=== PATIENT | female | born 1970 | race Caucasian/White ===

== ENCOUNTER 2016-10-28 07:17 | Emergency (ER) | payer BC ==
[2016-10-28] MEDS ORDERED: Ketorolac INJ* 60 MG/2 ML VIAL IM ONE (07:35)
--- NOTE | 2016-10-28 08:31 | RAD ---
HISTORY: Rib pain status post fall COMPARISONS: None relevant VIEWS: 4, Frontal view of the chest with frontal and oblique views of the left hemithorax FINDINGS: There is no displaced rib fracture or pneumothorax. The visualized lungs are clear. IMPRESSION: NO DISPLACED RIB FRACTURE OR PNEUMOTHORAX
[2016-10-28 09:19] VITALS: BP 118/75
--- NOTE | 2016-10-28 09:25 | RAD ---
HISTORY: Left flank pain, fall COMPARISONS: CT dated December 17, 2012 TECHNIQUE: Multiple transverse and longitudinal ultrasound images were obtained of the left hemiabdomen using grayscale and color Doppler imaging. FINDINGS: LEFT KIDNEY: The left kidney is normal in shape, size, contour, and echogenicity. There is no hydronephrosis or nephrolithiasis. The left kidney measures 10.5 x 4.7 x 5.2 cm. SPLEEN: The spleen is normal in shape, size, contour, and echotexture, without perisplenic fluid collection. The spleen measures 8.6 x 2.9 x 2.5 cm FLUID: There is no appreciable free fluid within the visualized portion of the abdomen OTHER FINDINGS: None. IMPRESSION: UNREMARKABLE LEFT KIDNEY AND SPLEEN, WITHOUT PERINEPHRIC OR PERISPLENIC FLUID COLLECTION.
--- NOTE | 2016-10-28 12:58 | UC ---
Freddie Otero Alok, scribed for Jessy Santizo DO on 10/28/16 at 0747 . Minor Trauma HPI - HPI Summary HPI Summary: 46 y/o female presents to the following a slip and fall in the bathtub last night at approximately 2100. Pt states that she fell on her left side and reports left-sided rib pain that registers at a 9 out of 10 in severity. Pt last took Ibuprofen ONCOLOGY COORDINATOR at 0645 this morning with no relief and states her pain is worsened by movement. Alleviated by stillness. Pt is taking shallow breathes d/t pain since the injury. She has had a minor cough for the past few days which is now excrutiating. Pt denies impact to the head during fall or loss of consciousness. Pt additionally denies sore throat, ear ache, MEAD, rash, nasal congestion, N/V, abd pain, urinary symptoms, SOB, lightheadedness, or dizziness. Pt smokes tobacco. - History of Current Complaint Chief Complaint: UCTrauma Stated Complaint: FELL-RIB INJURY Time Seen by Provider: 10/28/16 07:34 Hx Obtained From: Patient Hx Last Menstrual Period: unknown - menapausal ?: No Onset/Duration: Gradual Onset, Lasting Hours, Still Present Onset Of Pain: Post Accident Severity Initially: Moderate Severity Currently: Moderate Pain Intensity: 9 Pain Scale Used: 0-10 Numeric Mechanism Of Injury: Fall From A Standing Position Aggravating Factor(s): Movement Alleviating Factor(s): Nothing Associated Signs And Symptoms: Positive: Ecchymosis. Negative: Loss Of Consciousness - Allergies/Home Medications Allergies/Adverse Reactions: Allergies Allergy/AdvReac Type Severity Reaction Status Date / Time Codeine Allergy Severe Nausea And Verified 10/28/16 07:33 Vomiting PMH/Surg Hx/FS Hx/Imm Hx Previously Healthy: Yes Endocrine History Of: Denies: Diabetes, Thyroid Disease Cardiovascular History Of: Denies: Cardiac Disorders, Hypertension, Pacemaker/ICD Respiratory History Of: Denies: COPD, Asthma GI/ History Of: Denies: Ulcer - Surgical History Surgical History: Yes Surgery Procedure, Year, and Place: ; L heel bone removed; vaginal infection surgery. [facility] [place] - Family History Known Family History: Positive: Cardiac Disease, Hypertension - Social History Occupation: Employed Full-time Lives: With Family Alcohol Use: Daily Alcohol Amount: couple drinks a day Substance Use Type: None, Prescribed Smoking Status (MU): Heavy Every Day Tobacco Smoker Type: Cigarettes Amount Used/How Often: 1/2 ppd Have You Smoked in the Last Year: Yes Cessation Counseling: Patient Advised to Stop Review of Systems Constitutional: Negative Skin: Negative Eyes: Negative ENT: Negative Respiratory: Cough, Other - dypnea d/t pain Cardiovascular: Chest Pain - pleuritic Gastrointestinal: Negative Genitourinary: Negative Motor: Negative Neurovascular: Negative Musculoskeletal: Other: - Left-sided rib pain Neurological: Negative Psychological: Negative All Other Systems Reviewed And Are Negative: Yes Physical Exam Triage Information Reviewed: Yes Appearance: Well-Appearing, Well-Nourished, Pain Distress Vital Signs: Initial Vital Signs Temp 98.6 F 10/28/16 07:27 Pulse 108 10/28/16 07:27 Resp 20 10/28/16 07:27 BP 113/71 10/28/16 07:27 Pulse Ox 97 10/28/16 07:27 Vital Signs Reviewed: Yes Eyes: Positive: Conjunctiva Clear. Negative: Discharge ENT: Positive: Hearing grossly normal. Negative: Muffled/hoarse voice Neck exam: Normal Neck: Positive: Supple Respiratory: Positive: Lungs clear, Normal breath sounds, No respiratory distress, No accessory muscle use Cardiovascular: Positive: RRR, No Murmur Musculoskeletal: Positive: Other: - bruising over the lower cage on the axiallry line. tender ribs 9-12 on left Neurological: Positive: Alert, Muscle Tone Normal Psychological Exam: Normal Psychological: Positive: Age Appropriate Behavior Skin Exam: Normal, Other - Warm, Dry, Normal color Diagnostics - Laboratory Diagnostic Studies Completed/Ordered: Abd US - IMPRESSION: UNREMARKABLE LEFT KIDNEY AND SPLEEN, WITHOUT PERINEPHRIC OR PERISPLENIC FLUID COLLECTION. - Radiology Rib XRAY Xray Interpretation: Positive (See Comments) - IMPRESSION: NO DISPLACED RIB FRACTURE OR PNEUMOTHORAX Radiology Interpretation Completed By: Radiologist Re-Evaluation - Re-Evaluation First Eval Re-Evaluation Time: 08:43 Comment: No lightheadedness, dizziness, or SOB Minor Trauma Course/Dx - Course Course Of Treatment: Advised Against Smoking - Differential Dx/Diagnosis Differential Diagnosis/HQI/PQRI: Contusion(s), Fracture Provider Diagnoses: rib injury Discharge - Discharge Plan Condition: Stable Disposition: HOME Prescriptions: Ondansetron TAB* [Zofran Tab*] 4 mg PO Q6H PRN #10 tab PRN Reason: Nausea/Vomiting traMADol TAB* [Ultram*] 50 mg PO Q8H PRN #14 tab MDD 3 TABS PRN Reason: Pain Patient Education Materials: Rib Contusion (ED) Referrals: Warner Ulloa MD [Primary Care Provider] - 1 Week (FOLLOW UP IN 1 WEEK. FOLLOW UP SOONER IF SYMPTOMS WORSEN OR NEW SYMPTOMS DEVELOP.) Additional Instructions: ULTRAM (tramadol hydrochloride): Ultram is an excellent drug for pain relief. It is not a narcotic, but it works in a similar way. Ultram can take up to two hours for full effect. Although not addicting, Ultram is best avoided in patients with a history of drug abuse. Ultram should not be used with alcohol, sleeping pills, or narcotics. If you're prone to seizures, Ultram can make you more likely to have a seizure. Ultram can be hazardous when combined with MAO-inhibitor antidepressants (such as Nardil or Parnate). Be sure your doctor is aware of all medicines you are taking. Persons with severe liver or kidney disease should increase the time between doses of Ultram. Discuss this with your doctor if you're uncertain. Side effects of Ultram can include dizziness, nausea, constipation, sleepiness, and itching. (These side effects are also seen with narcotic pain medicines.) Please call your doctor if you have other disturbing effects. YOU WOULD LIKELY BENEFIT FROM BODY WORK SUCH A CHIROPRACTIC, ACCUPUNCTURE OR OSTEOPATHY. The documentation as recorded by the Freddie shin Alok accurately reflects the service I personally performed and the decisions made by , Jessy Santizo DO.
== END 2016-10-28 10:00 | disposition home or self-care (01) ==
LOC: UCEAST 07:17
DX: S09.8XXA Other specified injuries of head, initial encounter (principal); W18.2XXA Fall in (into) shower or empty bathtub, initial encounter; Y93.9 Activity, unspecified; Y99.9 Unspecified external cause status; F17.210 Nicotine dependence, cigarettes, uncomplicated; Z88.5 Allergy status to narcotic agent
CPT/HCPCS: 76705; 81003; 84702; 96372; 99212; G0463; J1885

== ENCOUNTER 2017-02-06 21:31 | Emergency (ER) | payer BC ==
[2017-02-06 21:47] VITALS: BP 129/82
[2017-02-06] MEDS ORDERED: Amoxicillin/Clavulanate TAB* 875 MG PO ONE (21:50)
[2017-02-06] MEDS ORDERED: Diphth/Teta/Acell Pertusis* 0.5 ML VIAL ** FOR 6 WKS TO 7 YRS OLD IM ONE (21:50)
[2017-02-06] MEDS ORDERED: Tetan/Diph/Pertus SYR(Tdap)* 0.5 ML SYR(BOOSTRIX) use SYR IM ONE (22:08)
--- NOTE | 2017-02-06 22:14 | ED ---
mabel Otero Timothy, scribed for ClairCooper on 02/06/17 at 2152 . Bite Injury/Animal - HPI Summary HPI Summary: Yoli Hansen is a 47 yo female presenting to [facility] with a cat bite to her right index finger at 2030 today. Per Pt,the cat is her own and is not UTD on rabies vaccine. She is not in any current pain. Her Mx includes , cholecystectomy. - History of Current Complaint Chief Complaint: EDAnimalBite Stated Complaint: CAT BITE ON FINGER Time Seen by Provider: 02/06/17 21:44 Hx Obtained From: Patient Hx Last Menstrual Period: unknown - menapausal Onset of Injury: Happened hours ago Type of Bite: Animal Has Animal Been Immunized?: No Severity Initially: Moderate Severity Currently: Moderate Pain Intensity: 0 Pain Scale Used: 0-10 Numeric Character: Puncture - Allergies/Home Medications Allergies/Adverse Reactions: Allergies Allergy/AdvReac Type Severity Reaction Status Date / Time Codeine Allergy Severe Nausea And Verified 10/28/16 07:33 Vomiting PMH/Surg Hx/FS Hx/Imm Hx Endocrine/Hematology History: Denies: Hx Diabetes, Hx Thyroid Disease Cardiovascular History: Denies: Hx Hypertension, Hx Pacemaker/ICD Respiratory History: Denies: Hx Asthma, Hx Chronic Obstructive Pulmonary Disease (COPD) GI History: Denies: Hx Ulcer Sensory History: Denies: Hx Hearing Aid Psychiatric History: Denies: Hx Panic Disorder - Surgical History Surgery Procedure, Year, and Place: ; L heel bone removed; vaginal infection surgery. [facility] [place] Infectious Disease History: No Infectious Disease History: Denies: Hx Clostridium Difficile, Hx Hepatitis, Hx Human Immunodeficiency Virus (HIV), Hx of Known/Suspected MRSA, Hx Shingles, Hx Tuberculosis, Traveled Outside the [place] in Last 30 Days - Family History Known Family History: Positive: Cardiac Disease, Hypertension - Social History Alcohol Use: Daily Alcohol Amount: couple drinks a day Substance Use Type: Reports: None, Prescribed Smoking Status (MU): Heavy Every Day Tobacco Smoker Type: Cigarettes Amount Used/How Often: 1/2 ppd Have You Smoked in the Last Year: Yes Review of Systems Constitutional: Negative Eyes: Negative ENT: Negative Cardiovascular: Negative Respiratory: Negative Gastrointestinal: Negative Genitourinary: Negative Musculoskeletal: Negative Positive: Other - cat bite right hand index finger Neurological: Negative Psychological: Normal All Other Systems Reviewed And Are Negative: Yes Physical Exam Triage Information Reviewed: Yes Vital Signs On Initial Exam: Initial Vitals Temp Pulse Resp BP Pulse Ox 97.8 F 92 16 135/76 99 02/06/17 21:33 02/06/17 21:33 02/06/17 21:33 02/06/17 21:33 02/06/17 21:33 Vital Signs Reviewed: Yes Appearance: Positive: Well-Appearing, No Pain Distress, Well-Nourished Skin: Positive: Warm, Skin Color Reflects Adequate Perfusion, Dry, Other - 2 puncture wounds on lateral aspect of right index finger, no bleeding, mild swelling. No ROM restriction. Head/Face: Positive: Normal Head/Face Inspection Eyes: Positive: EOMI, PRADIP ENT: Positive: Normal ENT inspection, Hearing grossly normal. Negative: Muffled /hoarse voice Neck: Positive: Supple, Nontender Respiratory/Lung Sounds: Positive: Clear to Auscultation, Breath Sounds Present Cardiovascular: Positive: RRR, Pulses are Symmetrical in both Upper and Lower Extremities Abdomen Description: Positive: Nontender, Soft Bowel Sounds: Positive: Present Musculoskeletal: Positive: Normal, Strength/ROM Intact Neurological: Positive: Normal, Sensory/Motor Intact, Alert, Oriented to Person Place, Time Psychiatric: Positive: Normal, Affect/Mood Appropriate Diagnostics - Vital Signs Vital Signs Temp Pulse Resp BP Pulse Ox 02/06/17 21:46 97.4 F 80 16 129/82 98 02/06/17 21:33 97.8 F 92 16 135/76 99 - Laboratory Lab Statement: Any lab studies that have been ordered have been reviewed, and results considered in the medical decision making process. Bite Injury Course/Dx - Course Assessment/Plan: Yoli Hansen is a 47 yo female presenting to [facility] with a cat bite to her right index finger at 2030 today. Pt medication list reviewed this visit. No x-rays indicated. In the ED course she received Ifanrix and augmentin. Pt counseled to observe her cat over the next 10 days and return to the ED immediately if she notices any change in behavior. After clinical examination and review of her imaging studies, she will be discharged home with cat bite right index finger with appropriate instructions and follow up. - Diagnoses Differential Diagnosis/HQI/PQRI: Positive: Other - cat bite Provider Diagnosis: Cat bite of index finger Discharge - Discharge Plan Condition: Stable Disposition: HOME Patient Education Materials: Animal Bite (ED) Referrals: Warner Ulloa MD [Primary Care Provider] - If Needed Additional Instructions: Please follow up with your primary care physician regarding your visit to the emergency department tonight. Return to the emergency department with any new or recurring symptoms, or if you notice any change in your cat's behavior in the next 10 days as we discussed. The documentation as recorded by the mabel shin Timothy accurately reflects the service I personally performed and the decisions made by , Cooper Self.
== END 2017-02-06 22:34 | disposition home or self-care (01) ==
LOC: ED 21:31
DX: S61.250A Open bite of right index finger without damage to nail, initial encounter (principal); W55.01XA Bitten by cat, initial encounter; Y93.89 Activity, other specified; Y92.89 Other specified places as the place of occurrence of the external cause; F17.210 Nicotine dependence, cigarettes, uncomplicated
CPT/HCPCS: 90471; 90715; 99282; A9270-GY

== ENCOUNTER 2018-05-28 07:57 | Emergency (ER) | payer BC ==
[2018-05-28 08:08] VITALS: BP 134/78
--- NOTE | 2018-05-28 08:33 | UC ---
Abdominal Pain Female HPI - HPI Summary HPI Summary: 48-year-old woman comes in today with a chief complaint of abdominal pain. Pain started yesterday primarily around the umbilicus. Overall she feels her abdomen is distended. Since the pain started she has not been hungry at all and has not eaten. She's also not had any bowel movements or passed any flatus since the pain started. The worst pain is right around the bellybutton and that 's tender when she touches it. He states it feels like it's on fire. She tries to find a position of comfort but she cannot. Pain is moderate to severe. She's had her gallbladder out and has had a . No fevers no dysuria. - History of Current Complaint Chief Complaint: UCAbdominalPain Stated Complaint: ABDOMINAL PAIN Time Seen by Provider: 05/28/18 08:20 Hx Last Menstrual Period: unknown - menapausal Pain Intensity: 4 Allergies/Adverse Reactions: Allergies Allergy/AdvReac Type Severity Reaction Status Date / Time codeine Allergy Nausea And Verified 05/28/18 08:08 Vomiting Home Medications: Home Medications ALPRAZolam [Xanax] 0.25 mg PO DAILY PRN 05/28/18 [History Confirmed 05/28/18] PMH/Surg Hx/FS Hx/Imm Hx Psychological History: Anxiety, Depression - Surgical History Surgical History: Yes Surgery Procedure, Year, and Place: ; L heel bone removed; vaginal infection surgery. [facility] [place] - Family History Known Family History: Positive: Cardiac Disease, Hypertension Negative: Diabetes - Social History Alcohol Use: Daily Alcohol Amount: couple drinks a day Substance Use Type: None Smoking Status (MU): Heavy Every Day Tobacco Smoker Type: Cigarettes Amount Used/How Often: 10-15cig/day Have You Smoked in the Last Year: Yes Household Exposure Type: Cigarettes Review of Systems Constitutional: Negative Skin: Negative Eyes: Negative ENT: Negative Respiratory: Negative Cardiovascular: Negative Gastrointestinal: Abdominal Pain Genitourinary: Negative Motor: Negative Neurovascular: Negative Musculoskeletal: Negative Neurological: Negative Psychological: Negative Is Patient Immunocompromised?: No All Other Systems Reviewed And Are Negative: Yes Physical Exam Triage Information Reviewed: Yes Appearance: Well-Nourished, Ill-Appearing - MILD, Pain Distress - MODERATE Vital Signs: Initial Vital Signs Temp 98.7 F 05/28/18 08:02 Pulse 112 11/08/18 08:02 Resp 18 05/28/18 08:02 BP 134/78 05/28/18 08:02 Pulse Ox 97 05/28/18 08:02 Vital Signs Reviewed: Yes Eye Exam: Normal Eyes: Positive: Conjunctiva Clear Neck exam: Normal Neck: Positive: Supple Respiratory: Positive: Lungs clear, Normal breath sounds, No respiratory distress Cardiovascular: Positive: Tachycardia Abdomen Description: Positive: Distended, Other: - Diffuse abdominal tenderness to palpation. Tenderness is worst at the umbilicus. I do not feel a mass at the umbilicus. Bowel sounds are minimal. Bowel Sounds: Positive: Hypoactive Musculoskeletal Exam: Normal Musculoskeletal: Positive: Strength Intact, ROM Intact Neurological Exam: Normal Neurological: Positive: Alert, Muscle Tone Normal Psychological Exam: Normal Psychological: Positive: Age Appropriate Behavior Skin: Positive: Other - There is some erythema around the umbilicus. Abd Pain Female Course/Dx - Course Course Of Treatment: The patient's symptoms and exam are concerning for partial bowel obstruction, complete bowel obstruction, and are hernia. I discussed the need for lab work that we can get him right back quickly and the potential for a CT with IV contrast which we cannot do here in clinic and I recommended the patient go to the emergency department. Patient declined ambulance transport will be going by POV. - Differential Dx/Diagnosis Provider Diagnoses: ABDOMINAL PAIN Discharge - Sign-Out/Discharge Documenting (check all that apply): Patient Departure All imaging exams completed and their final reports reviewed: No Studies - Discharge Plan Condition: Stable Disposition: HOME-RECOMMEND TO ED Patient Education Materials: Acute Abdominal Pain (ED) Referrals: Warner Ulloa MD [Primary Care Provider] - Additional Instructions: GO DIRECTLY TO THE EMERGENCY DEPARTMENT FOR FURTHER EVALUATION. - Billing Disposition and Condition Condition: STABLE Disposition: Home-Recommend to ED
== END 2018-05-28 08:35 | disposition home health service (06) ==
LOC: UCEAST 07:57
DX: R10.33 Periumbilical pain (principal); F17.210 Nicotine dependence, cigarettes, uncomplicated; F41.9 Anxiety disorder, unspecified; Z88.5 Allergy status to narcotic agent; Z79.899 Other long term (current) drug therapy
CPT/HCPCS: 81003; 99212; G0463

== ENCOUNTER 2018-05-28 08:57 | Emergency (ER) | payer BC ==
[2018-05-28] MEDS ORDERED: NS 0.9% 1000 ML* 1,000 ML IV ONE (09:34)
--- NOTE | 2018-05-28 09:35 | ED ---
Abdominal Pain/Female - HPI Summary HPI Summary: Pt. is a 48 y.o female who presents to the ER for abd. pain that started yesterday. Pt. states pain is a pressure sensation and c/o abd. bloating. Pt. also noted erythema around her umbilicus. Surgical history of cholecystectomy and section. Patient denies chest pain, shortness of breath, vomiting , constipation, diarrhea, fever. She has no significant past medical history. Symptoms are moderate in severity. Movement makes symptoms worse. Nothing makes symptoms better. - History of Current Complaint Chief Complaint: EDAbdPain Stated Complaint: EXTENDED STOMACH Time Seen by Provider: 05/28/18 09:33 Hx Obtained From: Patient Hx Last Menstrual Period: unknown - menapausal Pain Intensity: 0 Allergies/Adverse Reactions: Allergies Allergy/AdvReac Type Severity Reaction Status Date / Time codeine Allergy Nausea And Verified 05/28/18 09:09 Vomiting PMH/Surg Hx/FS Hx/Imm Hx Previously Healthy: Yes Endocrine/Hematology History: Denies: Hx Diabetes, Hx Thyroid Disease Cardiovascular History: Denies: Hx Hypertension, Hx Pacemaker/ICD Respiratory History: Denies: Hx Asthma, Hx Chronic Obstructive Pulmonary Disease (COPD) GI History: Denies: Hx Ulcer Sensory History: Denies: Hx Hearing Aid Psychiatric History: Denies: Hx Panic Disorder - Cancer History Hx Chemotherapy: No Hx Radiation Therapy: No - Surgical History Surgery Procedure, Year, and Place: ; L heel bone removed; vaginal infection surgery. [facility] [place] Infectious Disease History: No Infectious Disease History: Denies: Hx Clostridium Difficile, Hx Hepatitis, Hx Human Immunodeficiency Virus (HIV), Hx of Known/Suspected MRSA, Hx Shingles, Hx Tuberculosis, Traveled Outside the in Last 30 Days - Family History Known Family History: Positive: Cardiac Disease, Hypertension Negative: Diabetes - Social History Occupation: Employed Full-time Lives: With Family Alcohol Use: Daily Alcohol Amount: couple drinks a day Substance Use Type: Reports: None Smoking Status (MU): Heavy Every Day Tobacco Smoker Type: Cigarettes Amount Used/How Often: 10-15cig/day Have You Smoked in the Last Year: Yes Review of Systems Constitutional: Negative Negative: Fever, Chills Cardiovascular: Negative Negative: Palpitations, Chest Pain Respiratory: Negative Negative: Shortness Of Breath, Cough Positive: Abdominal Pain. Negative: Vomiting, Diarrhea, Nausea Genitourinary: Negative Positive: Other - redness to abd. Neurological: Negative All Other Systems Reviewed And Are Negative: Yes Physical Exam Triage Information Reviewed: Yes Vital Signs On Initial Exam: Initial Vitals Temp Pulse Resp BP Pulse Ox 99.0 F 104 18 133/68 100 05/28/18 09:05 05/28/18 09:05 05/28/18 09:05 05/28/18 09:05 05/28/18 09:05 Vital Signs Reviewed: Yes Appearance: Positive: Pain Distress - Pt. lying in bed, appears uncomfortable but ontoxic. S.O present. Skin: Positive: Warm, Dry Head/Face: Positive: Normal Head/Face Inspection Eyes: Positive: Normal, EOMI Neck: Positive: Supple Respiratory/Lung Sounds: Positive: Clear to Auscultation, Breath Sounds Present Cardiovascular: Positive: Normal, RRR Abdomen Description: Positive: Other: - abd. is distended with diffuse tenderness in all quadrants. High pitched bowel sounds. Small area of surround erythema noted around the umbilicus. No bulging. No rigidity. Neurological: Positive: Normal, CN Intact II-III Psychiatric: Positive: Affect/Mood Appropriate Diagnostics - Vital Signs Vital Signs Temp Pulse Resp BP Pulse Ox 05/28/18 09:05 99.0 F 104 18 133/68 100 - Laboratory Result Diagrams: 05/28/18 09:53 05/28/18 09:53 Lab Statement: Any lab studies that have been ordered have been reviewed, and results considered in the medical decision making process. Abdominal Pain Fem Course/Dx - Course Course Of Treatment: Patient presenting with diffuse abdominal pain, distention. She is afebrile stable vital signs. She does have an area of erythema around her umbilicus. Labs and CT scan ordered. Patient started IV fluids given morphine for pain. Blood work is unremarkable. CT read per radiology: IMPRESSION: 1. THERE IS DISTENTION WITHOUT DILATATION OF DISTAL SMALL BOWEL LOOPS WHICH ARE FILLED. WITH SIMPLE FLUID, IS THE PROXIMAL COLON WHICH CAN BE SEEN WITH DIARRHEAL ILLNESS. THERE IS NO OBSTRUCTION. 2. FATTY INFILTRATION OF LIVER. 3. STATUS POST CHOLECYSTECTOMY. 4. SMALL FAT- CONTAINING UMBILICAL HERNIA. Pt. evaluated by Dr. Mobley and he is concerned for possible incarcerated umbilical hernia. Dr. Mobley consults surgery, Dr. Martin, who examined pt. in the ER. Dr. Martin states hernia does not contain bowel and pt. can f.u outpt. for elective sx if her pain is control. Results and plan discussed with pt. and she is comfortable being dc home. Small rx for lortab rx. DIRECTOR BUSINESS DEVELOPMENT reviewed and no red flags noted. Advised patient to avoid heavy lifting, sneezing, coughing. To call surgery clinic today to schedule follow-up appointment. To return to the ER for increased pain, fever, vomiting. Patient understands and agrees with plan. 11 - Diagnoses Differential Diagnosis: Positive: Appendicitis, Bowel Obstruction, Constipation , Diverticulitis, Renal Colic, Urinary Tract Infection Provider Diagnoses: Umbilical hernia Discharge - Sign-Out/Discharge Documenting (check all that apply): Patient Departure - Discharge Plan Condition: Good Disposition: HOME Prescriptions: Hydrocodone/Acetaminophen [Hydrocodone-Acetamin 5-325 mg] 1 each PO Q6H #12 tablet MDD 4tablets Patient Education Materials: Umbilical Hernia (ED) Referrals: Kristina Braun NP [Nurse Practitioner] - Demar Martin MD [Medical Doctor] - Warner Ulloa MD [Primary Care Provider] - Additional Instructions: Call Dr. Martin's office today to schedule a follow up appointment Pain medication as directed Avoid heavy lifting, coughing, sneezing Return to ER for increased pain, fever, vomiting, or if concerned - Billing Disposition and Condition Condition: GOOD Disposition: Home
[2018-05-28] MEDS ORDERED: Ondansetron INJ* 2 MG/ML VIAL IV ONE (09:51)
[2018-05-28] MEDS ORDERED: Morphine VIAL* 4 MG/ML VIAL (1 ml vial) IV ONE ×2 (09:51→11:42)
[2018-05-28 10:00] LABS: ABS Basophils 0.1 10^3/ul (0-0.2); ABS Eosinophils 0 10^3/ul (0-0.6); ABS Lymphocytes 1.5 10^3/ul (1.0-4.8); ABS Monocytes 0.5 10^3/ul (0-0.8); ABS Neutrophils 4.8 10^3/ul (1.5-7.7); ABS Nucleated RBC 0 10^3/ul; Eosinophil % 0.7 % (0-6); Hematocrit 42 % (35-47); Lymphocyte % 21.9 % (25-47); Mean Corpuscular HGB Conc 34 g/dl (31-36); Mean Corpuscular Hemoglobin 33 pg (27-31); Mean Corpuscular Volume 97 fL (80-97); Mean Platelet Volume 7.5 fL (7.4-10.4); Nucleated Red Blood Cells % 0.1; Platelet Count 243 10^3/ul (150-450); Red Blood Count 4.28 10^6/ul (4.00-5.40); Red Cell Distribution Width 15 % (10.5-15); White Blood Count 6.9 10^3/ul (3.5-10.8)
[2018-05-28 10:23] LABS: EGFR Non-African American 106.7 (>60)
[2018-05-28] MEDS ORDERED: Iohexol 300* (CONTRAST) 10 ML SDV IV ONE (10:31)
--- NOTE | 2018-05-28 11:38 | ED ---
Progress - Progress Note Progress Note: GERONIMO Gonzalez requests that Dr. Mobley consult on this patient. Course/Dx - Course Course Of Treatment: Patient reports intermittent periumbilical pain since yesterday. She rates the pain 10/10. This pain is worse when standing, causing more abd bloating. She is tender over the umbilicus because she has a hernia there, so I will consult with general surgery. The patient will be sent home with a follow up appointment with Dr. Martin. Discharge - Sign-Out/Discharge Documenting (check all that apply): Patient Departure - discharge - Discharge Plan Condition: Good Disposition: HOME Prescriptions: Hydrocodone/Acetaminophen [Hydrocodone-Acetamin 5-325 mg] 1 each PO Q6H #12 tablet MDD 4tablets Patient Education Materials: Umbilical Hernia (ED) Referrals: Kristina Braun NP [Nurse Practitioner] - Demar Martin MD [Medical Doctor] - Warner Ulloa MD [Primary Care Provider] - Additional Instructions: Call Dr. Martin's office today to schedule a follow up appointment Pain medication as directed Avoid heavy lifting, coughing, sneezing Return to ER for increased pain, fever, vomiting, or if concerned - Attestation Statements Document Initiated by Scribe: Yes Documenting Scribe: Sherman Luis Provider For Whom Scribe is Documenting (Include Credential): Derek Mobley MD Scribe Attestation: Sherman Otero, scribed for Derek Mobley MD on 05/28/18 at 1332.
[2018-05-28 12:06] LABS: Urine Appearance Clear; Urine Blood Negative (Negative); Urine Color Yellow; Urine Ketones Negative (Negative); Urine Protein Negative (Negative); Urine Specific Gravity 1.024 (1.010-1.030); Urine Urobilinogen Negative (Negative)
[2018-05-28 13:18] VITALS: BP 130/78
--- NOTE | 2018-05-28 23:03 | CONS ---
CC: Dr. Warner Ulloa * CONSULTATION REPORT: DATE OF CONSULT: 05/28/18 - EMERGENCY DEPT HISTORY OF PRESENT ILLNESS: Ms. Hansen is a 48-year-old female who came to the hospital complaining of abdominal pain and a lot of bloating and distention. She started to have periumbilical pain about 24 hours prior to arrival, it was very severe. She had had bloating but no vomiting and has not had fever or chills or recent accident or injuries, has not been eating anything unusual. She has a history of laparoscopic cholecystectomy and section. Has never had a bowel obstruction. PHYSICAL EXAM: She is a well-developed, well-nourished female. She appears uncomfortable but not acutely ill. Skin is warm and well-perfused. Abdomen is slightly bloated, not tympanitic. Soft. Tender in the periumbilical region. There is a small palpable umbilical hernia of about a centimeter across. She is tender there but the hernia feels like it is reducible. There are no palpable masses. I do not appreciate any other hernias. There is no rebound, tenderness, or guarding. DIAGNOSTIC STUDIES/LAB DATA: I reviewed her CT scan, which shows a small fat- containing umbilical hernia. There is absolutely no intestine protruding into the hernia defect. She does have some dilated loops of small bowel, but it does not look like an obstructive pattern. Her laboratory studies showed normal white blood count at 6.9. Chemistries are unremarkable. Urinalysis is unremarkable. Lipase is normal. Liver chemistries are normal. Lactic acid normal. IMPRESSION: A 48-year-old female with abdominal pain and bloating and a small fat containing umbilical hernia. It is possible that she had some incarcerated omentum that got very painful and has now been reduced. It is possible that she has a small omental infarct or something of that sort. It is possible that her pain is related to an enteritis, which is evolving. In any case, there is no evidence of this is an acute abdomen, nothing that requires emergent admission to the hospital nor laparotomy and if her pain can be brought under control, I think she could be discharged home and follow up with us in the office regarding the umbilical hernia and I will be happy to see her again as needed. [id number]/[facility] #: [id number] [facility]OSPITALWillian
== END 2018-05-28 13:18 | disposition home or self-care (01) ==
LOC: ED 08:57
DX: K42.9 Umbilical hernia without obstruction or gangrene (principal); F17.210 Nicotine dependence, cigarettes, uncomplicated; Z88.5 Allergy status to narcotic agent
CPT/HCPCS: 36415; 74177; 80053; 81003; 83605; 83690; 85025; 86140; 96361; 96374; 96375; 96376; 99283; J2270; J2405; Q9967

== ENCOUNTER 2018-11-12 23:06 | Emergency (ER) | payer BC ==
[2018-11-13] MEDS ORDERED: oxyCODONE TAB* 5 MG TAB PO ONE (00:22)
--- NOTE | 2018-11-13 00:28 | ED ---
Adult Trauma - HPI Summary HPI Summary: Patient was pulled off balance by her dog and fell on her left side at 9:30 PM tonight, complaining of left side pain and pain in left hand. Patient states pain in left hand has resolved, but continues to have left side pain which is worse with deep inhalation, movement. Denies head injury, any other pain, injury or symptoms. Medical history is none. Denies anti-coag. - History of Current Complaint Chief Complaint: EDChestWallPain Stated Complaint: DOG DRAGGED ME THROUGH THE DRIVE WAY PER PT Time Seen by Provider: 11/13/18 00:12 Hx Obtained From: Patient Hx Last Menstrual Period: unknown - menapausal Mechanism of Injury: Blunt Trauma, Fall Ambulatory at the Scene: Yes Loss of Consciousness: no loss of consciousness Onset/Duration: Started Hours Ago Onset of Pain: Immediate Onset Severity: Severe Current Severity: Severe Pain Intensity: 8 Pain Scale Used: 0-10 Numeric Location: Chest Character: Aching, Sharp Aggravating Factor(s): Movement, Deep Breaths, Palpation Alleviating Factor(s): Shallowing Breathing Associated Signs & Symptoms: Positive: Chest Pain - Allergy/Home Medications Allergies/Adverse Reactions: Allergies Allergy/AdvReac Type Severity Reaction Status Date / Time codeine Allergy Nausea And Verified 05/28/18 09:09 Vomiting PMH/Surg Hx/FS Hx/Imm Hx Endocrine/Hematology History: Denies: Hx Diabetes, Hx Thyroid Disease Cardiovascular History: Denies: Hx Hypertension, Hx Pacemaker/ICD Respiratory History: Denies: Hx Asthma, Hx Chronic Obstructive Pulmonary Disease (COPD) GI History: Denies: Hx Ulcer Sensory History: Denies: Hx Hearing Aid Opthamlomology History: Denies: Hx Legally Blind EENT History: Denies: Hx Deafness Neurological History: Denies: Hx Dementia Psychiatric History: Denies: Hx Panic Disorder - Cancer History Hx Chemotherapy: No Hx Radiation Therapy: No - Surgical History Surgery Procedure, Year, and Place: ; L heel bone removed; vaginal infection surgery. [place] Infectious Disease History: No Infectious Disease History: Denies: Hx Clostridium Difficile, Hx Hepatitis, Hx Human Immunodeficiency Virus (HIV), Hx of Known/Suspected MRSA, Hx Shingles, Hx Tuberculosis, Traveled Outside the [place] in Last 30 Days - Family History Known Family History: Positive: Cardiac Disease, Hypertension Negative: Diabetes - Social History Alcohol Use: Daily Alcohol Amount: couple drinks a day Substance Use Type: Reports: None Smoking Status (MU): Heavy Every Day Tobacco Smoker Type: Cigarettes Amount Used/How Often: 10-15cig/day Have You Smoked in the Last Year: Yes Review of Systems Constitutional: Negative Eyes: Negative ENT: Negative Cardiovascular: Negative Respiratory: Negative Gastrointestinal: Negative Genitourinary: Negative Musculoskeletal: Negative Skin: Negative Neurological: Negative Psychological: Normal All Other Systems Reviewed And Are Negative: Yes Physical Exam - Summary Physical Exam Summary: Pain with palpation of left lateral lower ribs. No bruising, ecchymosis, erythema, deformity noted to left side chest wall. Abdomen is soft nontender to deep palpation. Lung sounds clear to auscultation bilaterally. Patient moves all 4 extremities freely without indication of pain. Exam of left hand normal. 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 No evidence of trauma to head, face, mouth. Full range of motion of neck. No pain with palpation of back. Triage Information Reviewed: Yes Vital Signs On Initial Exam: Initial Vitals Temp Pulse Resp BP Pulse Ox 98.6 F 104 20 137/99 96 11/12/18 23:08 11/12/18 23:08 11/12/18 23:08 11/12/18 23:08 11/12/18 23:08 Vital Signs Reviewed: Yes Appearance: Positive: Well-Appearing Skin: Positive: Warm Head/Face: Positive: Normal Head/Face Inspection Eyes: Positive: Normal ENT: Positive: Normal ENT inspection Dental: Negative: Dental Fracture @, Bleeding Neck: Positive: Supple Respiratory/Lung Sounds: Positive: Clear to Auscultation Cardiovascular: Positive: Normal Abdomen Description: Positive: Nontender Musculoskeletal: Positive: Normal Neurological: Positive: Normal Psychiatric: Positive: Normal AVPU Assessment: Alert - Eloisa Coma Scale Best Eye Response: 4 - Spontaneous Best Motor Response: 6 - Obeys Commands Best Verbal Response: 5 - Oriented Coma Scale Total: 15 Diagnostics - Vital Signs Vital Signs Temp Pulse Resp BP Pulse Ox 11/13/18 00:22 96 95 11/12/18 23:08 98.6 F 104 20 137/99 96 - Laboratory Lab Statement: Any lab studies that have been ordered have been reviewed, and results considered in the medical decision making process. Adult Trauma Course/Dx - Course Course Of Treatment: Patient was pulled off balance by her dog and fell on her left side at 9:30 PM tonight, complaining of left side pain and pain in left hand. Patient states pain in left hand has resolved, but continues to have left side pain which is worse with deep inhalation, movement. Denies head injury, any other pain, injury or symptoms. Medical history is none. Denies anti-coag. Physical exam:Pain with palpation of left lateral lower ribs. No bruising, ecchymosis, erythema, deformity noted to left side chest wall. Abdomen is soft nontender to deep palpation. Lung sounds clear to auscultation bilaterally. Patient moves all 4 extremities freely without indication of pain. Exam of left hand normal. 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 No evidence of trauma to head, face, mouth. Full range of motion of neck. No pain with palpation of back. Patient is x-ray of left hand. It has been 3 hours since event and Vital signs within normal limits. X-ray of left side chest and ribs negative for acute process. Rx for oxycodone. Patient has also been advised to remember to take deep breaths occasionally. States history of prior rib separation years ago, is familiar with chest wall pain. Patient understands and approves plan. - Diagnoses Provider Diagnoses: Left-sided chest wall pain Discharge - Sign-Out/Discharge Documenting (check all that apply): Patient Departure Patient Received Moderate/Deep Sedation with Procedure: No - Discharge Plan Condition: Stable Disposition: HOME Prescriptions: Oxycodone HCl 5 mg PO Q8H PRN 4 Days #12 tablet MDD 3 tabs PRN Reason: Pain Patient Education Materials: Chest Wall Pain (ED) Referrals: Warner Ulloa MD [Primary Care Provider] - Additional Instructions: Remember to breathe deeply occasionally to promote full exchange of air in lungs.. Take ibuprofen for pain and inflammation. Follow-up with primary care. Return to the ED for any new or worsening symptoms. - Billing Disposition and Condition Condition: STABLE Disposition: Home
[2018-11-13 01:17] VITALS: BP 104/69
== END 2018-11-13 01:20 | disposition home or self-care (01) ==
LOC: ED 23:06
DX: R07.89 Other chest pain (principal); M95.4 Acquired deformity of chest and rib; F17.210 Nicotine dependence, cigarettes, uncomplicated; Z88.5 Allergy status to narcotic agent
CPT/HCPCS: 99282; A9270-GY

== ENCOUNTER 2019-08-12 09:48 | Emergency (ER) | payer BC ==
--- NOTE | 2019-08-12 10:13 | ED ---
Abdominal Pain/Female - HPI Summary HPI Summary: Patient is a 49 y/o F presenting to [facility] with chief complaint of abdominal pressure at her umbilical area. This Sx has been present for the past month. Pressure is rated 8/10 at its worst, Sx aggravated by position. She initially attributed her abdominal pressure to the type of pants that she was wearing and stress. However, she states that she has recently become increasingly worried about the persistence of this Sx. Abdominal bloating, decreased appetite, and feeling "generally unwell" are noted as well. No N/V/D, urinary Sx, vaginal bleeding or discharge reported. She is unsure of recent weight change. Patient states that she took laxatives a few days ago with no relief in Sx. Despite having tried laxatives, patient denies that she has been constipated. PMHx of umbilical hernia, anxiety and heavy and long periods noted. She is prescribed Xanax as needed. PSHx of cholecystectomy, foot surgery, caesarean section noted. Appendix is still present. LNMP was around 2018. Patient consumes alcohol daily (typically two beers), smokes cigarettes daily, and denies substance usage. Home medications and allergies are reviewed. - History of Current Complaint Chief Complaint: EDAbdPain Stated Complaint: MOD ABD PRESSURE PER PT Time Seen by Provider: 08/12/19 09:54 Hx Obtained From: Patient Hx Last Menstrual Period: unknown - menapausal Onset/Duration: Lasting Weeks, Still Present Timing: Weeks Severity Currently: Mild Pain Intensity: 1 Pain Scale Used: 0-10 Numeric Location: Umbilical Character: Other: - pressure Aggravating Factor(s): Other: - position Associated Signs and Symptoms: Positive: Decreased Appetite, Other: - positive - "feeling unwell", abdominal bloating. Negative: Constipation, Urinary Symptoms, Vaginal Bleeding, Vaginal Discharge, Nausea, Vomiting, Diarrhea Allergies/Adverse Reactions: Allergies Allergy/AdvReac Type Severity Reaction Status Date / Time codeine Allergy Nausea And Verified 05/28/18 09:09 Vomiting Home Medications: Home Medications NK [No Home Medications Reported] 08/12/19 [History Confirmed 08/12/19] PMH/Surg Hx/FS Hx/Imm Hx Endocrine/Hematology History: Denies: Hx Diabetes, Hx Thyroid Disease Cardiovascular History: Denies: Hx Hypertension, Hx Pacemaker/ICD Respiratory History: Denies: Hx Asthma, Hx Chronic Obstructive Pulmonary Disease (COPD) GI History: Reports: Other GI Disorders - umbilical hernia Denies: Hx Ulcer Sensory History: Denies: Hx Legally Blind, Hx Deafness, Hx Hearing Aid Opthamlomology History: Denies: Hx Legally Blind Neurological History: Denies: Hx Dementia Psychiatric History: Reports: Hx Anxiety Denies: Hx Panic Disorder - Cancer History Hx Chemotherapy: No Hx Radiation Therapy: No - Surgical History Surgery Procedure, Year, and Place: ; L heel bone removed; vaginal infection surgery. [place] Infectious Disease History: No Infectious Disease History: Denies: Hx Clostridium Difficile, Hx Hepatitis, Hx Human Immunodeficiency Virus (HIV), Hx of Known/Suspected MRSA, Hx Shingles, Hx Tuberculosis, Traveled Outside the [place] in Last 30 Days - Family History Known Family History: Positive: Cardiac Disease, Hypertension Negative: Diabetes - Social History Alcohol Use: Daily Alcohol Amount: couple drinks a day Substance Use Type: Reports: None Smoking Status (MU): Heavy Every Day Tobacco Smoker Type: Cigarettes Amount Used/How Often: 10-15cig/day Have You Smoked in the Last Year: Yes Review of Systems Constitutional: Other - positive - "feeling unwell" Gastrointestinal: Other - positive - abdominal bloating, decreased appetite; negative - constipation Positive: Abdominal Pain - pressure. Negative: Vomiting, Diarrhea, Nausea Genitourinary: Other - negative - vaginal bleeding Positive: no symptoms reported - no urinary Sx reported . Negative: discharge - vaginal All Other Systems Reviewed And Are Negative: Yes Physical Exam - Summary Physical Exam Summary: Constitutional: Well-developed, Well-nourished, Alert. (-) Distressed Skin: Warm, Dry HENT: Normocephalic; Atraumatic Eyes: Conjunctiva normal Neck: Musculoskeletal ROM normal neck. (-) JVD, (-) Stridor, (-) Tracheal deviation Cardio: Rhythm regular, rate normal, Heart sounds normal; Intact distal pulses; Radial pulses are 2+ and symmetric. (-) Murmur Pulmonary/Chest wall: Effort normal. (-) Respiratory distress, (-) Wheezes, (-) Rales Abd: Soft, (+) Epigastric tenderness, (+) Distension, (-) Guarding, (-) Rebound Musculoskeletal: (-) Edema Lymph: (-) Cervical adenopathy Neuro: Alert, Oriented x3 Psych: Mood and affect Normal Triage Information Reviewed: Yes Vital Signs On Initial Exam: Initial Vitals Temp Pulse Resp BP Pulse Ox 97.3 F 114 18 119/82 98 08/12/19 09:51 08/12/19 09:51 08/12/19 09:51 08/12/19 09:51 08/12/19 09:51 Vital Signs Reviewed: Yes Procedures - Sedation Patient Received Moderate/Deep Sedation with Procedure: No Diagnostics - Vital Signs Vital Signs Temp Pulse Resp BP Pulse Ox 08/12/19 09:51 97.3 F 114 18 119/82 98 - Laboratory Result Diagrams: 08/12/19 10:13 08/12/19 10:13 Lab Statement: Any lab studies that have been ordered have been reviewed, and results considered in the medical decision making process. - CT CT ABD/PEL CT Interpretation Completed By: Radiologist Summary of CT Findings: IMPRESSION: #. Pelvic ultrasound suggested for further characterization of 1.4 x 2.4 x 2.2 cm. relative low suspicion hypodense lesion at the RIGHT ovary most likely representing a. functional cyst. #. Negative for ascites or lymphadenopathy. THIS REPORT WAS REVIEWED BY ED PHYSICIAN. - Ultrasound TRANSVAGINAL US Ultrasound Interpretation Completed By: Radiologist Summary of Ultrasound Findings: IMPRESSION: 1. 2.8 CM COMPLEX RIGHT OVARIAN CYST. RECOMMEND A FOLLOW-UP PELVIC ULTRASOUND IN 1-2. MONTHS TIME. 2. SMALL UTERINE FIBROID. 3. RETROVERTED UTERUS. THIS REPORT WAS REVIEWED BY ED PHYSICIAN. Re-Evaluation - Re-Evaluation First Eval Re-Evaluation Time: 13:10 Comment: Workup discussed, patient to be discharged with OBGYN and PCP follow up. Abdominal Pain Fem Course/Dx - Course Course Of Treatment: Patient is here with one month of worsening abdominal distention and pressure. Patient does appear slightly distended on exam but is otherwise well-appearing. Patient had blood performed which is grossly unremarkable. Patient a CT scan to rule out underlying mass which showed a right ovarian cyst. [place] recommended an ultrasound for further evaluation which was performed. Patient has a complex right ovarian cyst and she will follow up with that in 1-2 months for another ultrasound. Patient will follow up with her primary care doctor as well to get further evaluation. - Diagnoses Provider Diagnoses: Right ovarian cyst, Abdominal distention Discharge ED - Sign-Out/Discharge Documenting (check all that apply): Patient Departure - discharge - Discharge Plan Condition: Stable Disposition: HOME Patient Education Materials: Ovarian Cyst (ED) Referrals: Kelsy Velazquez MD [Medical Doctor] - 3 Days Warner Ulloa MD [Primary Care Provider] - 3 Days Additional Instructions: FOLLOW UP WITH OBGYN AND YOUR PRIMARY CARE PHYSICIAN WITHIN THREE DAYS. YOU WILL NEED A REPEAT ULTRASOUND IN 1-2 MONTHS TO RE-EVALUATE YOUR CYST. PLEASE RETURN TO ED FOR ANY SEVERE ABDOMINAL PAIN, UNEXPECTED VAGINAL BLEEDING, OR OTHER CONCERNING SYMPTOMS. - Billing Disposition and Condition Condition: STABLE Disposition: Home - Attestation Statements Document Initiated by Concha: Yes Documenting Scribe: SHAUNNA DOCKERY Provider For Whom Concha is Documenting (Include Credential): AMOR HUERTAS MD Scribe Attestation: SHAUNNA Otero, scribed for AMOR HUERTAS MD on 08/12/19 at 1416. Scribe Documentation Reviewed: Yes Provider Attestation: The documentation as recorded by the SHAUNNA shin accurately reflects the service I personally performed and the decisions made by AMOR lawrence MD Status of Scribe Document: Viewed
[2019-08-12 10:25] LABS: ABS Basophils 0.1 10^3/ul (0-0.2); ABS Eosinophils 0.1 10^3/ul (0-0.6); ABS Lymphocytes 1.6 10^3/ul (1.0-4.8); ABS Monocytes 0.7 10^3/ul (0-0.8); ABS Neutrophils 5.4 10^3/ul (1.5-7.7); Eosinophil % 0.7 %; Hematocrit 41 % (35-47); Hemoglobin 14.2 g/dL (12.0-16.0); Lymphocyte % 20.4 %; Mean Corpuscular HGB Conc 35 g/dL (31-36); Mean Corpuscular Hemoglobin 34 pg (27-31); Mean Corpuscular Volume 98 fL (80-97); Mean Platelet Volume 7.6 fL (7.4-10.4); Platelet Count 288 10^3/uL (150-450); Red Blood Count 4.18 10^6 /uL (3.70-4.87); Red Cell Distribution Width 13 % (10-15); White Blood Count 7.8 10^3/uL (3.5-10.8)
[2019-08-12 10:43] LABS: Albumin 4.3 g/dL (3.2-5.2); Albumin/Globulin Ratio 1.6 (1-3); BUN/Creatinine Ratio 11.7 (8-20); Calcium 9.3 mg/dL (8.6-10.3); EGFR African American 96.4 (>60); EGFR Non-African American 79.7 (>60); Globulin 2.7 g/dL (2-4); Potassium 4.5 mmol/L (3.5-5.0); Total Bilirubin 0.4 mg/dL (0.2-1.0)
[2019-08-12] MEDS ORDERED: Iohexol 300* (CONTRAST) 10 ML SDV IV ONE (10:54)
[2019-08-12 13:15] LABS: HIV 4th Generation Nonreactive (Nonreactive)
[2019-08-12 13:39] VITALS: BP 113/69
== END 2019-08-12 13:37 | disposition home or self-care (01) ==
LOC: ED 09:48
DX: N83.201 Unspecified ovarian cyst, right side (principal); R14.0 Abdominal distension (gaseous); D25.9 Leiomyoma of uterus, unspecified; N85.4 Malposition of uterus; F17.210 Nicotine dependence, cigarettes, uncomplicated; F41.9 Anxiety disorder, unspecified; Z90.49 Acquired absence of other specified parts of digestive tract; Z88.5 Allergy status to narcotic agent
CPT/HCPCS: 36415; 74177; 76830; 80053; 83690; 85025; 87389; 99282; Q9967